=== PATIENT | male | born 1965 | race Caucasian/White ===

== ENCOUNTER 2016-10-28 18:57 | Emergency (ER) | payer BC ==
[2016-10-28 20:03] LABS: BASO % 0.3 % (0-2); EOS % 4.3 % (0-7); EOSINOPHIL ABSOLUTE COUNT 0.3 tho/cmm (0.0-0.7); HCT-HEMATOCRIT 41.2 % (36.0-53.5); HGB-HEMOGLOBIN 14.1 gm/dl (13.5-17.0); IMMATURE GRANULOCYTES ABSOLUTE 0.01 tho/cmm (0-0.03); IMMATURE GRANULOCYTES PERCENT 0.1 % (0-0.3); LYMPH ABSOLUTE COUNT 2.8 tho/cmm (0.8-4.5); MCH (MEAN CORPUSCULAR HGB) 29.9 pg (28.0-32.0); MCHC MEAN CORPUSCULAR HGB CONC 34.2 % (32.0-36.0); MCV (MEAN CELL VOLUME) 87.3 fl (82.0-96.0); MEAN PLATELET VOLUME 8.9 cmc (9.4-12.4); MONOCYTE ABSOLUTE COUNT 0.5 tho/cmm (0.0-1.2); NEUTROPHIL ABSOLUTE COUNT 3.6 tho/cmm (1.6-8.0); NEUTROPHIL-AUTOMATED 3.6 tho/cmm (1.6-8.0); NEUTROPHILS % 50.3 % (40-80); PLATELET COUNT 203 tho/cmm (150-450); RED BLOOD COUNT 4.72 mil/cmm (4.40-5.70); WHITE BLOOD COUNT 7.2 tho/cmm (4.0-10.0)
[2016-10-28 20:16] LABS: ANION GAP 11 mmol/L (0-20); BLOOD UREA NITROGEN 18 mg/dl (6-24); CALCIUM 8.5 mg/dl (8.5-10.5); CARBON DIOXIDE-VENOUS 25 mmol/L (22-32); CHLORIDE 111 mmol/l (96-110); CREATININE 1.45 mg/dl (0.60-1.30); GLUCOSE 89 mg/dL (70-110); POTASSIUM 4.1 mmol/L (3.7-5.1); SODIUM 143 mmol/L (135-145); eGFR VALUE FOR BLACK 64 mL/Min
[2016-10-28] MEDS ORDERED: LEVAQUIN500 M1 PO (22:16)
== END 2016-10-28 22:32 ==
LOC: EDMED 18:57
PROVIDERS: Physician Assistant
DX: N45.2 Orchitis (principal)